=== PATIENT | male | born 1995 | race Caucasian/White ===

== ENCOUNTER → 2021-04-09 09:17 | Outpatient (CLI) | payer OTHER, SELFPAY ==
[2021-04-09 13:05] LABS: COVID19 -Nasal RAPID Negative (Negative)
== END ==
PROVIDERS: Referring Provider Physician Assistant; Visit Provider Physician Assistant
DX: Z20.822 Contact with and (suspected) exposure to COVID-19 (principal)
CPT/HCPCS: 87635

== ENCOUNTER 2021-04-10 08:10 | Day surgery (SDC) | payer OTHER, SELFPAY ==
[2021-04-09 10:47] VITALS: BMI 34.1
[2021-04-10] VITALS (8 sets, daily range): BP systolic 108–136; BP diastolic 69–89; PULSE 56–90; RESP 11–18; TEMP 36.2–36.6; O2SAT 96–98; BMI 34.1
--- NOTE | 2021-04-10 08:30 | PM.PREOP ---
Pre-operative Note Interval Note History & Physical reviewed/Exam performed by Physician: Yes Changes to H&P: No
[2021-04-10] MEDS: ACETAMINOPHEN 325 MG TABLET 975 MG PO (08:31)
[2021-04-10] MEDS: SCOPOLAMINE 1 PATCH TOP (08:31)
--- NOTE | 2021-04-10 08:31 | PM.HP.1 ---
History of Present Illness History of Present Illness Date Patient Seen: 04/10/21 Time Patient Seen: 08:31 Chief complaint: ELIGIO Narrative: 25-year-old male with chronic history of right greater than left nasal airway obstruction with known septal deviation and inferior turbinate hypertrophy, inadequately treated with medical therapy, presents for septoplasty and turbinate reduction, possible right internal nasal valve release. Patient last seen in clinic 01/14/2021, no reviewed, no interval changes, no recent cough, cold, or fever. Patient History Medical History Nasal obstruction Nasal septal deviation Family & Social History Social History: household members spouse Tobacco & Substance use: Smoking Status Never smoker alcohol intake current alcohol intake frequency a few times a week Substance Use Type does not use Meds Home Medications and Allergies Home Medications Medication Instructions Recorded Confirmed Type No Known Home Medications 04/09/21 04/09/21 History Allergies Allergy/AdvReac Type Severity Reaction Status Date / Time No Known Drug Allergies Allergy Verified 04/09/21 10:53 Review of Systems Review of Systems Narrative: Negative except as listed in the HPI Exam Vital Signs (past 8 hours): - 04/10/21 08:21 Temperature 97.2 F L Pulse Rate 90 Respiratory Rate 18 Blood Pressure 135/89 Pulse Oximetry 98 Oxygen Delivery Method Room Air Narrative Exam Narrative: Well-developed well-nourished stocky male in no acute distress. Heart regular rate and rhythm without murmur, lungs clear to auscultation bilaterally Assessment & Plan Assessment & Plan narrative: Assessment nasal airway obstruction, septal deviation, inferior turbinate hypertrophy, possible internal nasal valve restriction Plan: Following discussion of the material risks benefits complications and alternatives, the patient elected to proceed with septoplasty and inferior turbinate reduction, possible internal nasal valve release. Time Spent With Patient Critical Care time: I spent a total of [] minutes of critical care time on this patient's care today; this time is exclusive of procedural time.
[2021-04-10] MEDS: LACTATED RINGERS 1,000 ML 42 ML IV (08:32)
[2021-04-10] MEDS: OXYMETAZOLINE NASAL SPRAY 15 ML 2 SPRAYS NASAL ×2 (08:34→09:26)
--- NOTE | 2021-04-10 08:34 | P.OP_ITS ---
Operative Date/Time/Diagnoses Date of procedure: 04/10/21 Time of procedure: 10:38 Pre-op diagnosis: Nasal airway obstruction, septal deviation, inferior turbinate hypertrophy, possible internal nasal valve restriction Post-op diagnosis: same Procedure & Clinicians Procedure: 1. Septoplasty 2. Bilateral inferior turbinate reduction via intramural cautery Same procedure as scheduled: Yes Indications: 25-year-old male with the above diagnoses incompletely managed with medical therapy presents for the above procedures. Following discussion of the material risks benefits complications and alternatives, he elected to proceed. Surgeon: Frederic Henley Click Yes if Unassisted: Yes Anesthesia Type: General and Local Operative Notes Findings: 3+ right caudal deviation with previously fractured caudal strut bent 90 degrees left preop, left posterior and high 2 to 3+ septal deviation including low and mid spur, left greater than right inferior turbinate hypertrophy Closure Type: primary Estimated Blood Loss (mL): 100 Procedure in detail: Following identification and confirmation of consent as well as preoperative Afrin nasal spray, the patient was brought to the operating room suite and placed in the supine position. General endotracheal anesthesia was administered. I infiltrated the septum widely bilaterally with 1% lidocaine 1 100,000 epinephrine followed by temporary packing with cotton with Afrin and 4% lidocaine. Following sterile prep and drape, the packing was removed and I per formed a right angelito-transfixion incision, difficult due to caudal strut prior fracture and deviation, elevated the right mucoperichondrial and mucoperiosteal flap. I disarticulated near the bony/cartilaginous junction and elevated the left mucoperiosteal flap. Deviated portions of the perpendicular plate of the ethmoid and vomer were resected. The residual quadrilateral cartilage was further straightened by trimming it inferiorly as well as reducing the maxillary crest. A 2 mm strip of cartilage paralleling the residual 1 cm dorsal and caudal strut was resected to further straighten the quadrilateral cartilage. The caudal strut remained significantly deviated, and a pocket was created between the medial crura to allow a transcollumellar stitch to pull the caudal strut medially and anteriorly. The hemitransfixion incision was closed with interrupted 5 0 chromic followed by a running 4 0 plain gut mattress suture to reapproximate the septal flaps. At case completion, 20/1000th of an inch silastic splints were placed bilaterally, sutured anteriorly with a single 4 0 nylon. The head of each inferior turbinate had been previously infiltrated with additional local anesthetic and a 25 gauge spinal needle was used to impale the length of the turbinate, with cautery on a setting of 15 activated on slow withdrawal. The turbinates were then outfractured. The procedure completed, sponge and needle counts were correct and the patient was extubated in the operating room and taken to recovery room in stable condition without known complication. Postoperative care: Nasal saline every hour while awake, Vaseline or Polysporin to the nostrils at all times, begin irrigations t.i.d. beginning pod 1. Humidifier at the bedside blowing on the face. Tylenol alternating with Advil for pain control, oxycodone if necessary for breakthrough pain. Ice will be very important on the upper lip as much as tolerated. Complications: none Post-operative Condition: stable Disposition: same day surgery Plan for aftercare: Nasal saline every hour while awake, begin irrigations t.i.d. tomorrow if desired. Polysporin to the nostrils at all times, Tylenol alternating with Advil for pain control, oxycodone for breakthrough pain. Ice to the upper lip as much as tolerated. Elevate head of bed, no nose blowing, no straining for 2 weeks. Follow-up in 1 week for nasal splint removal.
--- NOTE | 2021-04-10 09:17 | SUR.OPER ---
Supine on padded OR bed, head on pillow, arms padded and tucked at sides, legs uncrossed, safety belt at thigh, tape over blanket over lower legs .
[2021-04-10] MEDS: LIDOCAINE 1% W/EPI 20 ML INJ (09:24)
[2021-04-10] MEDS: LIDOCAINE 4% SOLN 50 ML 20 ML TOP (09:24)
[2021-04-10] MEDS: BACITRACIN 28 GM OINT 1 APPLIC TOP (09:28)
--- NOTE | 2021-04-10 10:17 | SUR.OPER ---
afrin and bacitracin containers sent with patient
[2021-04-10] MEDS: OXYCODONE IR 5 MG TABLET PO (11:11)
== END 2021-04-10 12:10 | disposition home or self-care (01) ==
PROVIDERS: Referring Provider Otolaryngology; Visit Provider Otolaryngology
PROC: (CPT 30520; principal; 2021-04-10 08:30)
DX: J34.89 Other specified disorders of nose and nasal sinuses (principal); J34.2 Deviated nasal septum; J34.3 Hypertrophy of nasal turbinates
CPT/HCPCS: 30520; 30802; J0330; J1100; J2250; J2405; J2704; J3010

== ENCOUNTER 2022-02-23 09:15 | Emergency (ER) | payer OTHER, SELFPAY ==
[2022-02-23] VITALS (12 sets, daily range): BP systolic 127–142; BP diastolic 71–85; PULSE 48–66; RESP 13–20; TEMP 36.5; O2SAT 96–100; BMI 30.1
--- NOTE | 2022-02-23 09:26 | DI.RAD.S_ITS ---
PROCEDURE: XR CHEST 1V INDICATIONS: Chest pain TECHNIQUE: One view of the chest was acquired. COMPARISON: None. FINDINGS: Surgical changes and devices: None. Lungs and pleura: Lungs are clear. No pleural effusions or pneumothorax. Mediastinum: Mediastinal contours appear normal. Heart size is normal. Bones and chest wall: No suspicious bony lesions. Overlying soft tissues appear unremarkable. IMPRESSION: No acute cardiopulmonary process demonstrated radiographically. Dictated by: Sarmad Blake M.D. on 02/23/2022 at 10:01 Approved by: Sarmad Blake M.D. on 02/23/2022 at 10:02
[2022-02-23 09:50] LABS: Add Manual Diff / Slide Review NO; Basophils Absolute Auto 0 /uL (0-100); Basophils Percent Auto 0.5 % (0-2); Eosinophils Absolute Auto 100 /uL (0-450); Eosinophils Percent Auto 1.8 % (2-4); Hematocrit 43.4 % (41-53); Lymphocytes Absolute Auto 1300 /uL (1100-4500); Lymphocytes Percent Auto 22.4 % (25-40); Mean Corpuscular HGB Conc 34.7 % (30-36); Mean Corpuscular Hemoglobin 29.4 PG (26-34); Mean Corpuscular Volume 84.8 fL (80-100); Monocytes Absolute Auto 700 /uL (0-900); Monocytes Percent Auto 11.3 % (3-14); Neutrophils Absolute Auto 3700 /uL (1500-7000); Platelet Count 260 X10^3/uL (150-400); Red Blood Cell Count 5.11 X10^6/uL (4.5-5.9); Red Cell Distribution Width 12.9 % (11.6-14.8); White Blood Cell Count 5.8 X10^3/uL (4.5-11.0)
[2022-02-23 10:20] LABS: Alanine Aminotransferase 14 IU/L (<50); Albumin 4.7 g/dL (3.5-5.0); Albumin Globulin Ratio 1.4 (1.0-2.8); Alkaline Phosphatase 90 U/L (38-126); Aspartate Aminotransferase 24 IU/L (17-59); BUN Creatinine Ratio 11.9 (6-22); Bilirubin Total 1.3 mg/dL (0.2-1.3); Blood Urea Nitrogen 10 mg/dL (9-20); Calcium 9.4 mg/dL (8.4-10.2); Carbon Dioxide 28 mmol/L (22-32); Chloride 101 mmol/L (98-107); Creatine Kinase 98 U/L (55-170); Estimated Glomerular Filt Rate > 60 mL/min (>60); Globulin 3.4 g/dL (1.7-4.1); Glucose 94 mg/dL (70-100); HEMOLYSIS < 15 (0-50); Lipase 65 U/L (23-300); Magnesium 1.8 mg/dL (1.6-2.3); Potassium 4.4 mmol/L (3.4-5.1); Sodium 139 mmol/L (137-145); Total Protein 8.1 g/dL (6.3-8.2)
[2022-02-23 10:31] LABS: Troponin I < 0.012 ng/mL (0.01-0.034)
--- NOTE | 2022-02-23 10:40 | ED_ITS ---
HPI - Chest Pain General Chief Complaint: Chest Pain Stated Complaint: chest pain Time Seen by Provider: 02/23/22 10:32 Source: patient Mode of arrival: Ambulatory Limitations: no limitations Limitations: no limitations History of Present Illness HPI narrative: 26-year-old male occasional naproxen use, patient denies any other medical issues. He states he started having some chest that he describes as sort of epigastric and left sternal radiating up towards his left shoulder at about 630 or 7:00 a.m. this morning continued to be present. He states nothing seems to make it better or worse he denies having similar symptoms in the past. Maybe some mild shortness of breath. He states it is not pleuritic. Denies fevers or chills, no cold cough or congestion. No nausea or vomiting. No diaphoresis. He denies any swelling in his extremities. Patient has not had any rashes or skin changes. He states he takes naproxen occasionally but not every day his last dose was 2 days ago for his shoulder. He denies any prior surgeries. No known drug allergies. No tobacco, 1-2 alcoholic drinks monthly, no illicit. Patient denies any family history of cardiac, vascular embolic or lung issues. He has not had any long distance travel or been sitting for extended periods of time. Related Data Home Medications Medication Instructions Recorded Confirmed No Known Home Medications 04/09/21 04/09/21 Allergies Allergy/AdvReac Type Severity Reaction Status Date / Time No Known Drug Allergies Allergy Verified 02/23/22 09:41 Review of Systems Review of Systems ROS Unobtainable: All systems reviewed & are unremarkable except as noted in HPI and below Patient History Medical History Nasal obstruction Nasal septal deviation Social History household members: spouse Smoking Status: Never smoker alcohol intake: current Smoking Status: Never smoker alcohol intake frequency: a few times a week Substance Use Type: does not use Exam Narrative Exam Narrative: GENERAL: Alert and oriented x three, male in mild distress HEENT: Head normocephalic, atraumatic, EOMI, pupils reactive, face symmetric, moist mucous membranes NECK: Supple, full range of motion CARDIOVASCULAR: Regular rate and rhythm without murmurs, rubs or gallops. No JVD. No swelling bilateral lower extremities. No reproducible chest pain on palpation. RESPIRATORY: Breath sounds equal bilaterally, no wheezes rales or rhonchi. ABDOMEN: Soft, nontender. Normoactive bowel sounds all 4 quadrants. No guarding or rebound, rigidity, no mass : No CVA tenderness EXTREMITIES: Normal range of motion, no clubbing or edema. Neurovascularly intact NEUROLOGICAL: Cranial nerves II through XII grossly intact. Moving all extremities SKIN: Warm, dry, no petechiae, no rashes or lesions. Initial Vital Signs Initial Vital Signs: Vital Signs Temperature 97.7 F 02/23/22 09:23 Pulse Rate 59 L 02/23/22 09:23 Respiratory Rate 18 02/23/22 09:23 Blood Pressure 142/85 H 02/23/22 09:23 Pulse Oximetry 100 02/23/22 09:23 Oxygen Delivery Method 02/23/22 09:23 Scores HEART Score Heart Score history: Slightly Suspicious Heart Score EKG: Non-Specific repolarization disturbance Heart Score Age: < 45 years old Heart Score risk factors: No known risk factors Heart Score troponin: < or = to normal limit Heart Score Total: 1 Nexus Score for C-Spine Focal Neurologic deficit present: No Midline spinal tenderness present: No Altered level of conciousness present: No Intoxication present: No Distracting Injury Present: No Nexus Criteria for C-spine: 0 Course Orders Ordered: ED Orders 02/23/22 09:26 XR chest 1V Stat EKG-12 Lead Stat 02/23/22 09:35 Complete Blood Count AUTO DIFF Stat Comprehensive Metabolic Panel Stat D Dimer Stat Lipase Stat Magnesium Stat Troponin & CK Cardiac Panel Stat 02/23/22 11:02 COVID19 -Nasal RAPID/Pre-Proc Stat 02/23/22 11:29 EKG-12 Lead Routine 02/23/22 11:30 Trop I [Troponin I] Stat Vital Signs Vital signs: Vital Signs - 8 hr 02/23/22 09:23 02/23/22 09:29 02/23/22 09:30 Temperature 97.7 F Pulse Rate 59 L 66 63 Respiratory Rate 18 16 15 Blood Pressure 142/85 H Pulse Oximetry 100 100 100 Oxygen Delivery Method Room Air Room Air 02/23/22 10:00 02/23/22 10:30 02/23/22 11:00 Temperature Pulse Rate 56 L 57 L 60 Respiratory Rate 13 14 14 Blood Pressure Pulse Oximetry 97 97 97 Oxygen Delivery Method 02/23/22 11:30 02/23/22 12:00 02/23/22 12:30 Temperature Pulse Rate 65 57 L 57 L Respiratory Rate 20 15 14 Blood Pressure Pulse Oximetry 98 96 99 Oxygen Delivery Method Room Air 02/23/22 12:47 02/23/22 12:47 02/23/22 13:00 Temperature Pulse Rate 63 63 Respiratory Rate 19 15 Blood Pressure 134/71 Pulse Oximetry 99 97 Oxygen Delivery Method Room Air MDM - Chest Pain Lab Data Result diagrams: 02/23/22 09:35 02/23/22 09:35 Labs: Lab Results 02/23/22 02/23/22 02/23/22 Range/Units 09:35 09:35 09:35 WBC 5.8 (4.5-11.0) X10^3/uL RBC 5.11 (4.5-5.9) X10^6/uL Hgb 15.0 (13.5-17.5) g/dL Hct 43.4 (41-53) % MCV 84.8 (80-100) fL MCH 29.4 (26-34) PG MCHC 34.7 (30-36) % RDW 12.9 (11.6-14.8) % Plt Count 260 (150-400) X10^3/uL Neut % (Auto) 64.0 (50-75) % Lymph % (Auto) 22.4 L (25-40) % [place] % (Auto) 11.3 (3-14) % Eos % (Auto) 1.8 L (2-4) % Baso % (Auto) 0.5 (0-2) % Neut # (Auto) 3700 (1371-4822) /uL Lymph # (Auto) 1300 (5595-9330) /uL [place] # (Auto) 700 (0-900) /uL Eos # (Auto) 100 (0-450) /uL Baso # (Auto) 0 (0-100) /uL D-Dimer 259 (<500) ng/ml Sodium 139 (137-145) mmol/L Potassium 4.4 (3.4-5.1) mmol/L Chloride 101 (98-107) mmol/L Carbon Dioxide 28 (22-32) mmol/L BUN 10 (9-20) mg/dL Creatinine 0.84 (0.66-1.25) mg/dL Estimated GFR > 60 (>60) mL/min BUN/Creatinine Ratio 11.9 (6-22) Glucose 94 (70-100) mg/dL Calcium 9.4 (8.4-10.2) mg/dL Magnesium 1.8 (1.6-2.3) mg/dL Total Bilirubin 1.3 (0.2-1.3) mg/dL AST 24 (17-59) IU/L ALT 14 (<50) IU/L Alkaline Phosphatase 90 (38-126) U/L Total Creatine Kinase 98 (55-170) U/L CK-MB (CK-2) TNP CK-MB (CK-2) Rel Index TNP Troponin I < 0.012 (0.01-0.034) ng/mL Total Protein 8.1 (6.3-8.2) g/dL Albumin 4.7 (3.5-5.0) g/dL Globulin 3.4 (1.7-4.1) g/dL Albumin/Globulin Ratio 1.4 (1.0-2.8) Lipase 65 (23-300) U/L SARS-CoV-2 (PCR) (Negative) 02/23/22 02/23/22 Range/Units 11:02 11:30 WBC (4.5-11.0) X10^3/uL RBC (4.5-5.9) X10^6/uL Hgb (13.5-17.5) g/dL Hct (41-53) % MCV (80-100) fL MCH (26-34) PG MCHC (30-36) % RDW (11.6-14.8) % Plt Count (150-400) X10^3/uL Neut % (Auto) (50-75) % Lymph % (Auto) (25-40) % [place] % (Auto) (3-14) % Eos % (Auto) (2-4) % Baso % (Auto) (0-2) % Neut # (Auto) (0644-8101) /uL Lymph # (Auto) (4056-5191) /uL [place] # (Auto) (0-900) /uL Eos # (Auto) (0-450) /uL Baso # (Auto) (0-100) /uL D-Dimer (<500) ng/ml Sodium (137-145) mmol/L Potassium (3.4-5.1) mmol/L Chloride (98-107) mmol/L Carbon Dioxide (22-32) mmol/L BUN (9-20) mg/dL Creatinine (0.66-1.25) mg/dL Estimated GFR (>60) mL/min BUN/Creatinine Ratio (6-22) Glucose (70-100) mg/dL Calcium (8.4-10.2) mg/dL Magnesium (1.6-2.3) mg/dL Total Bilirubin (0.2-1.3) mg/dL AST (17-59) IU/L ALT (<50) IU/L Alkaline Phosphatase (38-126) U/L Total Creatine Kinase (55-170) U/L CK-MB (CK-2) CK-MB (CK-2) Rel Index Troponin I < 0.012 (0.01-0.034) ng/mL Total Protein (6.3-8.2) g/dL Albumin (3.5-5.0) g/dL Globulin (1.7-4.1) g/dL Albumin/Globulin Ratio (1.0-2.8) Lipase (23-300) U/L SARS-CoV-2 (PCR) Negative (Negative) Imaging Data Chest x-ray: Radiologist's Impression: Close Chest X-Ray (Signed) Blake,Sarmad - 02/23/22 Telemetry Strips 04/10/[address] [address] XRay Report Signed Patient: Chase Gaspar MR#: [id number] : 1995 Acct:[id number] Age/Sex: 26 / M Date of Service: 02/23/22 Loc: ED Accession Number: [id number] ?? Procedure: XR chest 1V Ordering Provider: Tavia Lei D.O. PROCEDURE:? XR CHEST 1V ? INDICATIONS:? Chest pain ? TECHNIQUE:? One view of the chest was acquired.? ? COMPARISON:? None. ? FINDINGS:? ? Surgical changes and devices:? None.? ? Lungs and pleura:? Lungs are clear.? No pleural effusions or pneumothorax.? ? Mediastinum:? Mediastinal contours appear normal.? Heart size is normal.? ? Bones and chest wall:? No suspicious bony lesions.? Overlying soft tissues nathaly ear unremarkable.? ? IMPRESSION:? No acute cardiopulmonary process demonstrated radiographically. ? ? Dictated by: Sarmad Blake M.D. on 02/23/2022 at 10:01 ? ? Approved by: Sarmad Blake M.D. on 02/23/2022 at 10:02?? ECG Data Attestation: I personally reviewed and interpreted this ECG as follows: Prior ECG tracings: not available for review Interpretation: Sinus bradycardia, rate of 58, pr of 128, qrs of 92, QTc 400. RSR in 3 and AVF no acute ST changes. Rate of 50 6p are 136 QRS of 94 QTC 393. RSR in 3 no other acute changes appreciated, no dynamic changes. MDM Narrative Medical decision making narrative: This is a 26-year-old male with chest pain that started this morning some mild shortness of breath nonpleuritic, no other risk factors, nonspecific change on EKG, negative troponin with plan for repeat troponin and D-dimer patient does not have significant risk factors but does feel a little short of breath. Chest x-ray is clear with no other acute lab abnormalities. Repeat EKG and troponin show acute change. D-dimer is negative. COVID swab is negative as well. Discharge Plan Departure Patient Disposition: Home Clinical Impression: Chest pain Instructions: DI for Chest Pain Activity Restrictions/Additional Instructions: Follow-up with your physician for recheck. Please return if you are having worsening symptoms, lightheadedness or passing out, worsening chest pain, shortness of breath, persistent vomiting, new swelling of extremities or other new or concerning changes. Prescriptions: No Action No Known Home Medications Referrals: ProviderMichael [Primary Care Provider] - Visit Report Forms: Patient Portal/API
[2022-02-23 11:53] LABS: COVID19 -Nasal RAPID Negative (Negative)
[2022-02-23 12:12] LABS: Troponin I < 0.012 ng/mL (0.01-0.034)
[2022-02-23 12:58] LABS: D Dimer 259 ng/ml (<500)
== END 2022-02-23 13:34 | disposition home or self-care (01) ==
PROVIDERS: Emergency Provider Emergency Medicine
DX: R07.9 Chest pain, unspecified (principal); R06.02 Shortness of breath; Z20.822 Contact with and (suspected) exposure to COVID-19
CPT/HCPCS: 36415; 71045; 80053; 82550; 83690; 83735; 84484; 85025; 85379; 87635; 93005; 99284; C9803